=== PATIENT | female | born 1990 | race Two or more races ===

== ENCOUNTER 2016-07-01 11:46 | Outpatient (CLI) | payer OTHER, MEDICAID | END 2016-07-01 11:47 | disposition home or self-care (01) | DX: Z34.82 Encounter for supervision of other normal pregnancy, second trimester (principal) ==

== ENCOUNTER 2016-09-10 21:09 | Observation (INO) | payer OTHER, MEDICAID ==
[2016-09-10] MEDS ORDERED: TERBUTALINE 1 MG/ML VIAL SUBQ ONE (21:48)
[2016-09-10] MEDS ORDERED: LACTATED RINGERS 250 ML IV ONE (22:33)
[2016-09-10] MEDS ORDERED: LACTATED RINGERS 1,000 ML IV SCH (23:00)
[2016-09-10] MEDS ORDERED: BETAMETHASONE 30 MG/5 ML VIAL IM SCH (23:11)
[2016-09-10] MEDS ORDERED: LACTATED RINGERS IV SCH ×2 (23:27)
[2016-09-10] MEDS ORDERED: DEXTROSE IV SCH ×2 (23:27)
[2016-09-11] MEDS ORDERED: ONDANSETRON 4 MG/2 ML VIAL IVP PRN (00:55)
[2016-09-11] MEDS ORDERED: DEXTROSE 5%-LACTATED RINGERS 1,000 ML IV SCH ×2 (01:00→23:00)
[2016-09-11] MEDS ORDERED: NIFEdipine 10 MG CAPSULE PO SCH (01:30)
[2016-09-11] MEDS ORDERED: NIFEdipine 10 MG CAPSULE PO STA (08:40)
[2016-09-11] MEDS ORDERED: BETAMETHASONE 30 MG/5 ML VIAL IM ONE (09:00)
== END 2016-09-11 09:30 | disposition home or self-care (01) ==
DX: O60.03 Preterm labor without delivery, third trimester (principal); Z3A.32 32 weeks gestation of pregnancy
CPT/HCPCS: 76830; 81001; 82731; 87797; 96372; 96374; 99214; A9270; G0378

== ENCOUNTER 2016-09-14 14:41 | Emergency (ER) | payer OTHER, MEDICAID ==
[2016-09-14] MEDS ORDERED: SODIUM CHLORIDE 0.9% 1,000 ML IV ONE (15:16)
[2016-09-14] MEDS ORDERED: ONDANSETRON 4 MG/2 ML VIAL IVP STA (16:06)
[2016-09-14] MEDS ORDERED: ONDANSETRON 4 MG/2 ML VIAL ONE (16:07)
[2016-09-14] MEDS ORDERED: POTASSIUM BICARB 25 MEQ TABLET PO STA (16:15)
[2016-09-14] MEDS ORDERED: POTASSIUM BICARB 25 MEQ TABLET PO ONE (16:23)
[2016-09-14] MEDS ORDERED: cefTRIAXone 1 GM in SODIUM CHLORIDE 0.9% MINIBAG 100 ML IV STA (17:29)
[2016-09-14] MEDS ORDERED: cefTRIAXone 1 GM VIAL ONE (17:39)
== END 2016-09-14 18:31 | disposition home or self-care (01) ==
DX: O99.613 Diseases of the digestive system complicating pregnancy, third trimester (principal); K52.9 Noninfective gastroenteritis and colitis, unspecified; O99.283 Endocrine, nutritional and metabolic diseases complicating pregnancy, third trimester; E86.0 Dehydration; Z3A.33 33 weeks gestation of pregnancy
CPT/HCPCS: 36415; 80053; 81001; 83690; 85025; 96361; 96365; 96375; 99284; A9270

== ENCOUNTER 2016-09-23 07:54 | Outpatient (CLI) | payer OTHER, MEDICAID | END 2016-09-23 07:55 | disposition home or self-care (01) | DX: O47.03 False labor before 37 completed weeks of gestation, third trimester (principal) ==

== ENCOUNTER 2016-09-29 08:00 | Outpatient (CLI) | payer OTHER, MEDICAID | END 2016-09-29 08:01 | disposition home or self-care (01) | DX: Z36 Encounter for antenatal screening of mother (principal) ==

== ENCOUNTER 2016-09-29 11:31 | Outpatient (CLI) | payer OTHER, MEDICAID | END 2016-09-29 14:30 | disposition home or self-care (01) | DX: O60.03 Preterm labor without delivery, third trimester (principal); O36.8130 Decreased fetal movements, third trimester, not applicable or unspecified; Z3A.35 35 weeks gestation of pregnancy; Z36 Encounter for antenatal screening of mother ==

== ENCOUNTER 2016-10-02 21:24 | Outpatient (CLI) | payer OTHER, MEDICAID ==
[2016-10-02] MEDS ORDERED: SODIUM CHLORIDE FLUSH 0.9% 10 ML SYRINGE IVP ONE (21:47)
[2016-10-02] MEDS ORDERED: LACTATED RINGERS 1,000 ML IV ONE (21:54)
[2016-10-02] MEDS ORDERED: LACTATED RINGERS 1,000 ML IV SCH ×2 (22:00→23:00)
[2016-10-02] MEDS ORDERED: TERBUTALINE 1 MG/ML VIAL SUBQ ONE (22:20)
[2016-10-02] MEDS ORDERED: TERBUTALINE 1 MG/ML VIAL SUBQ SCH ×2 (23:00)
[2016-10-02] MEDS ORDERED: NIFEdipine ER 30 MG TABLET PO SCH (23:00)
== END 2016-10-03 01:45 | disposition home or self-care (01) ==
DX: O60.03 Preterm labor without delivery, third trimester (principal); Z3A.35 35 weeks gestation of pregnancy
CPT/HCPCS: 81001; 85025; 96372; 99214; J7120

== ENCOUNTER 2016-10-08 16:29 | Inpatient (IN) | payer MEDICAID, OTHER ==
[2016-10-08] MEDS ORDERED: SODIUM CHLORIDE FLUSH 0.9% 10 ML SYRINGE IVP PRN (17:18)
[2016-10-08] MEDS ORDERED: fentaNYL 100 MCG/2 ML VIAL IVP PRN (17:18)
[2016-10-08] MEDS ORDERED: ONDANSETRON 4 MG/2 ML VIAL IVP PRN ×2 (17:18→18:24)
[2016-10-08] MEDS ORDERED: SODIUM CHLORIDE FLUSH 0.9% 10 ML SYRINGE IVP ONE (17:20)
[2016-10-08] MEDS ORDERED: LACTATED RINGERS 1,000 ML IV ONE (17:20)
[2016-10-08] MEDS ORDERED: MINERAL OIL LIGHT 10 ML MC ONE (17:42)
[2016-10-08] MEDS ORDERED: OXYTOCIN/LACTATED RINGERS 250 ML IV ONE ×2 (17:42→22:59)
[2016-10-08] MEDS ORDERED: LIDOCAINE 1% 50 ML MDV ONE (17:42)
[2016-10-08] MEDS ORDERED: fent/BUPIV 2 MCG/0.125% 250 ML EP ONE (17:46)
[2016-10-08] MEDS ORDERED: ROPIVACAINE 0.2% PF 10 ML VIAL EPI ONE (17:55)
[2016-10-08] MEDS ORDERED: LACTATED RINGERS 1,000 ML IV SCH (18:00)
[2016-10-08] MEDS ORDERED: NALOXONE 0.4 MG/ML VIAL IVP PRN (18:24)
[2016-10-08] MEDS ORDERED: diphenhydrAMINE INJ 50 MG/ML VIAL IVP PRN (18:24)
[2016-10-08] MEDS ORDERED: LACTATED RINGERS 500 ML IV ONE (18:24)
[2016-10-08] MEDS ORDERED: ePHEDrine 50 MG/ML AMP IVP PRN (18:24)
[2016-10-08] MEDS ORDERED: fent/BUPIV 2 MCG/0.125% 250 ML EP PRN (18:24)
[2016-10-08] MEDS ORDERED: NALBUPHINE 20 MG/ML AMP IVP PRN (18:24)
[2016-10-08] MEDS ORDERED: METOCLOPRAMIDE 10 MG/2 ML VIAL IVP PRN (18:24)
[2016-10-08] MEDS ORDERED: OXYTOCIN/LACTATED RINGERS 250 ML IV SCH (20:00)
[2016-10-08] MEDS ORDERED: SIMETHICONE CHEW 80 MG TABLET PO PRN (22:59)
[2016-10-08] MEDS ORDERED: WITCH HAZEL/GLYCERIN 1 EACH MED..PAD TOP PRN (22:59)
[2016-10-08] MEDS ORDERED: HYDROCORTISONE/PRAMOXINE 10 GM PR PRN (22:59)
[2016-10-08] MEDS ORDERED: HYDROcod/ACETAM 5/325 MG TABLET PO PRN (22:59)
[2016-10-09] MEDS: SODIUM CHLORIDE FLUSH 0.9% 10 ML SYRINGE IVP SCH ×2 (00:26→04:47)
[2016-10-09] MEDS: ACETAMINOPHEN 325 MG TABLET PO SCH ×5 (00:44→19:58)
[2016-10-09] MEDS: DOCUSATE SODIUM 100 MG CAPSULE PO SCH ×3 (00:45→21:08)
[2016-10-09] MEDS: CELECOXIB 100 MG CAPSULE PO SCH ×2 (09:45→21:08)
[2016-10-10] MEDS: ACETAMINOPHEN 325 MG TABLET PO SCH ×3 (02:02→14:13)
[2016-10-10] MEDS: DOCUSATE SODIUM 100 MG CAPSULE PO SCH (08:37)
[2016-10-10] MEDS: CELECOXIB 100 MG CAPSULE PO SCH (08:37)
== END 2016-10-10 15:00 | disposition home or self-care (01) | DRG 775 ==
PROC: 0KQM0ZZ Repair Perineum Muscle, Open Approach (ICD-10-PCS; principal; 2016-10-08)
PROC: 10E0XZZ Delivery of Products of Conception, External Approach (ICD-10-PCS; 2016-10-08)
PROC: 10907ZC Drainage of Amniotic Fluid, Therapeutic from Products of Conception, Via Natural or Artificial Opening (ICD-10-PCS; 2016-10-08)
DX: O60.14X0 Preterm labor third trimester with preterm delivery third trimester, not applicable or unspecified (principal); O70.1 Second degree perineal laceration during delivery; Z3A.36 36 weeks gestation of pregnancy; Z37.0 Single live birth

== ENCOUNTER 2018-10-26 12:46 | Outpatient (CLI) | payer OTHER ==
--- NOTE | 2018-10-26 14:10 | XRAY Report ---
Reason: DYSPNEA,CHRONIC COUGH,FATIGUE Procedure Date: 10/26/2018 Accession Number: [id number] / [id number] Procedure: XR - Chest 2 View X-Ray CPT Code: 16664 FULL RESULT: EXAM: CHEST RADIOGRAPHY EXAM DATE: 10/26/2018 01:04 PM. CLINICAL HISTORY: Dyspnea, chronic cough, fatigue. COMPARISON: None. TECHNIQUE: 2 views. FINDINGS: Lungs/Pleura: No focal opacities evident. No pleural effusion. No pneumothorax. Normal volumes. Mediastinum: Heart and mediastinal contours are unremarkable. Other: None. IMPRESSION: Normal 2-view chest radiography. [facility]
== END 2018-10-26 12:47 | disposition home or self-care (01) ==
LOC: DI 12:46
PROVIDERS: ATTEND Physician Assistant Medical
DX: R06.00 Dyspnea, unspecified (principal); R05 Cough; R53.83 Other fatigue
CPT/HCPCS: 71046

== ENCOUNTER 2019-08-22 08:19 | Emergency (ER) | payer OTHER, MEDICAID ==
[2019-08-22 08:35] VITALS: BP 129/80
--- NOTE | 2019-08-22 08:44 | ED Physician Documentation ---
PD HPI UPPER EXT INJURY - Stated complaint Stated Complaint: RT HAND LAC - Chief complaint Chief Complaint: Laceration - History obtained from History obtained from: Patient - History of Present Illness Location: Right (28-year-old right-handed woman who is up-to-date on tetanus cut her hand on broken glass last night.) Review of Systems Constitutional: reports: Reviewed and negative Cardiac: reports: Reviewed and negative Respiratory: reports: Reviewed and negative PD PAST MEDICAL HISTORY - Past Medical History Past Medical History: Yes Cardiovascular: None Respiratory: None Endocrine/Autoimmune: None 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 : None HEENT: None Psych: None Musculoskeletal: None Derm: None - Past Surgical History Past Surgical History: No - Present Medications Home Medications: Ambulatory Orders Medication Instructions Recorded Confirmed Docusate Sodium 1 tab PO BID 09/14/16 09/14/16 Doxylamine/Pyridoxine HCl 1 tab PO PRN 09/14/16 [Diclegis Dr 10-10 mg Tablet] NIFEdipine [Nifedipine] 10 mg PO Q6HR 09/14/16 09/14/16 Cephalexin [Keflex] 500 mg PO Q6H #28 capsule 08/22/19 - Allergies Allergies/Adverse Reactions: Allergies Allergy/AdvReac Type Severity Reaction Status Date / Time Penicillins Allergy Hives Verified 08/22/19 08:34 - Social History Does the pt smoke?: No Smoking Status: Never smoker Does the pt drink ETOH?: No Does the pt have substance abuse?: No - Immunizations Immunizations are current?: Yes - POLST Patient has POLST: No PD ED PE NORMAL - Vitals Vital signs reviewed: Yes - General General: Alert and oriented X 3, No acute distress - Extremities Extremities: Other (There is a 1-1/2 cm shallow curvilinear laceration over the thumb on the right dorsally. It is just barely in the subcutaneous tissue.) - Neuro Neuro: Alert and oriented X 3, Normal speech Results - Vitals Vitals: Vital Signs - 24 hr 08/22/19 08:32 Temperature 36.2 C L Heart Rate 82 Respiratory 16 Rate Blood Pressure 129/80 O2 Saturation 100 Oxygen O2 Source Room air PD MEDICAL DECISION MAKING - ED course ED course: Wound would have been borderline for suturing at the outset, now really too late. Probably not bad enough to do delayed primary closure but this option was discussed with her and she can decide at a later date. It was closed with Steri-Strips after copious irrigation. Departure - Departure Disposition: Home, Self Care Clinical Impression: Laceration Condition: Good Record reviewed to determine appropriate education?: Yes Instructions: ED Laceration Old Not Sutr Prescriptions: Cephalexin [Keflex] 500 mg PO Q6H #28 capsule Comments: The wound would have been borderline for suturing in the first place, you can return after 3 days on antibiotics if it still looks like it needs to be sutured. Otherwise you can keep it dressed with a Band-Aid and bacitracin ointment. It should heal fine either way.
== END 2019-08-22 09:11 | disposition home or self-care (01) ==
LOC: ED 08:19
DX: S61.411A Laceration without foreign body of right hand, initial encounter (principal); W25.XXXA Contact with sharp glass, initial encounter
CPT/HCPCS: 99282; 99283

== ENCOUNTER 2019-10-29 11:43 | Outpatient (CLI) | payer OTHER, MEDICAID ==
--- NOTE | 2019-10-31 13:21 | XRAY Report ---
Reason: PAIN IN RIGHT SHOULDER Procedure Date: 10/29/2019 Accession Number: [id number] / [id number] Procedure: XR - Shoulder 3 View RT CPT Code: Final Report FULL RESULT: EXAM: RIGHT SHOULDER RADIOGRAPHY EXAM DATE: 10/29/2019 12:56 PM. CLINICAL HISTORY: PAIN IN RIGHT SHOULDER. COMPARISON: None. TECHNIQUE: 3 views. FINDINGS: Bones: Normal. No fracture or bone lesion. Joints: The glenohumeral and acromioclavicular joints are normal. Soft tissues: The visualized hemithorax is unremarkable. No soft tissue swelling. IMPRESSION: Normal shoulder radiography. [facility]
== END 2019-10-29 11:44 | disposition home or self-care (01) ==
LOC: DI 11:43
PROVIDERS: ATTEND Nurse Practitioner Family
DX: M25.511 Pain in right shoulder (principal)

== ENCOUNTER 2020-04-04 09:00 | Outpatient (CLI) | payer OTHER, MEDICAID | END 2020-04-04 09:01 | disposition home or self-care (01) | LOC: COV 09:00 | PROVIDERS: ATTEND Family Medicine | DX: J02.9 Acute pharyngitis, unspecified (principal); R09.81 Nasal congestion; Z20.828 Contact with and (suspected) exposure to other viral communicable diseases ==

== ENCOUNTER 2021-05-13 15:02 | Emergency (ER) | payer OTHER, MEDICAID ==
[2021-05-13 15:08] VITALS: BP 124/85
[2021-05-13] MEDS ORDERED: BACITRACIN ZINC OINT 1 PACKET TOP STA (15:22)
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
== END 2021-05-13 15:38 | disposition home or self-care (01) ==
LOC: ED 15:02
DX: S00.431A Contusion of right ear, initial encounter (principal); S00.411A Abrasion of right ear, initial encounter; W22.8XXA Striking against or struck by other objects, initial encounter; Y93.89 Activity, other specified; Y92.810 Car as the place of occurrence of the external cause
CPT/HCPCS: 99281; 99282